=== PATIENT | male | born 1985 | race Caucasian/White ===

== ENCOUNTER 2018-11-08 13:27 | Day surgery (SDC) | payer OTHER ==
[2018-11-07 13:15] VITALS: BMI 31.3
[2018-11-08] MEDS ORDERED: Neomycin-Polymyxin 1 ML AMP ONE (16:02)
[2018-11-08] MEDS ORDERED: Fentanyl 100 MCG/2 ML VIAL ONE ×3 (17:04→18:47)
[2018-11-08] MEDS ORDERED: Bupivacaine HCl 0.5%/Epinephrine 1:200,000/PF 30 ml Vial ONE (17:15)
[2018-11-08] MEDS ORDERED: Meperidine HCl/PF 25 MG/ML VIAL ONE (18:39)
[2018-11-08] MEDS ORDERED: HYDROcodone/Acetaminophen 5/325 mg Tablet ONE (19:39)
--- NOTE | 2018-11-08 19:52 | RAD ---
Radiograph left ankle 3 views: DATE: 11/08/2018 HISTORY: 33-year-old male with lateral malleolus fracture. COMPARISON: None available FINDINGS: Fluoroscopic spot images obtained with C-arm, with intrinsically low resolution, demonstrates 2 lag s crews traversing a displaced lateral malleolus fracture. Ankle mortise is grossly congruent. IMPRESSION: Screw fixation of lateral malleolus fracture.
--- NOTE | 2018-11-09 01:27 | OP ---
DATE OF PROCEDURE: 11/08/2018 PREOPERATIVE DIAGNOSIS: Fracture, lateral malleolus and rupture of the deltoid ligament with lateral subluxation, left ankle. POSTOPERATIVE DIAGNOSIS: Fracture, lateral malleolus and rupture of the deltoid ligament with lateral subluxation, left ankle. PROCEDURE: Open reduction and internal fixation of lateral malleolus and repair of the deltoid ligament of the left ankle. ANESTHESIA: General. TECHNIQUE: The patient was given preoperative IV antibiotics, taken to the operating room, placed in supine position. Satisfactory general anesthesia was performed. Left foot, ankle and leg were sterilely prepped and draped in usual fashion. After exsanguination, tourniquet at proximal left calf was raised to 250 mmHg. A longitudinal incision was made in the lateral aspect of the ankle approximately 2.5 inches in length over the lateral malleolus. Blunt and sharp dissection was made down to the lateral malleolus. Periosteal elevation was performed. The ankle was reduced and the lateral malleolus was internally fixed using two 4.0 cannulated screws. A 1.5 inch incision was made medially over the deltoid ligament. Blunt and sharp dissection was made down to the medial compartment and the deltoid ligament was found to be completely torn. It was repaired using #2 FiberWire and interrupted [id number] sutures while keeping the foot and ankle in inversion and internal rotation. C-arm verified good position of the screws and proper placement of the ankle. The wounds were then copiously irrigated with antibiotic solution. They were closed using 0 Vicryl for the periosteum and subcutaneous tissue and the skin was closed with 3-0 Rapide. The 2 wounds were then infiltrated with a total of 30 mL of 0.5% Marcaine with epinephrine. Sterile dressing was applied. Tourniquet was released. The patient was awakened, extubated, and transferred to recovery room in stable condition. ESTIMATED BLOOD LOSS: None. COMPLICATION: None. TOURNIQUET TIME: 52 minutes. Job ID: [id number]
== END 2018-11-08 20:05 | disposition home or self-care (01) ==
LOC: SDC 13:27
PROVIDERS: ATTEND Orthopaedic Surgery
PROC: 0QSK04Z Reposition Left Fibula with Internal Fixation Device, Open Approach (ICD-10-PCS; principal; 2018-11-08)
DX: S82.62XA Displaced fracture of lateral malleolus of left fibula, initial encounter for closed fracture (principal); S93.422A Sprain of deltoid ligament of left ankle, initial encounter
CPT/HCPCS: 76000; C1713; C1769; J0670; J0690; J2175; J3010